=== PATIENT | male | born 1965 | race Caucasian/White ===

== ENCOUNTER → 2019-03-24 | Outpatient (CLI) | payer OTHER ==
--- NOTE | 2019-03-24 08:42 | Diagnostic Imaging Report ---
EXAMINATION: CT of the abdomen and pelvis without contrast. TECHNIQUE: Spiral CT images of the abdomen and pelvis were performed from the lung bases to the lesser trochanters. No intravenous contrast was given per renal stone protocol. Coronal and sagittal reformatted images were obtained. COMPARISON: None. CLINICAL HISTORY:Gross hematuria DISCUSSION: ABSENCE OF INTRAVENOUS CONTRAST DECREASES SENSITIVITY FOR DETECTION OF FOCAL LESIONS AND VASCULAR PATHOLOGY. ABDOMEN/PELVIS: LOWER THORAX: Unremarkable. HEPATOBILIARY:No focal hepatic lesion or intrahepatic biliary ductal dilatation. Gas containing calculus in the dependent gallbladder. No pericholecystic inflammation. SPLEEN: No splenomegaly. PANCREAS: No focal masses or ductal dilatation. ADRENALS: No adrenal nodules. KIDNEYS/URETERS: Exophytic subcentimeter hypoattenuating lesion projecting from the upper pole of the left kidney is too small to further characterize though likely to represent a small cyst. Otherwise no focal renal lesions. No hydronephrosis. No renal, ureteral, or bladder calculi. PELVIC ORGANS/BLADDER: The urinary bladder is unremarkable. Coarse prostatic calcifications. Pelvic phleboliths. PERITONEUM/RETROPERITONEUM: No free air or fluid. LYMPH NODES: No pelvic sidewall, retroperitoneal, or mesenteric lymphadenopathy. VESSELS: Limited evaluation without intravenous contrast. Mild atherosclerotic calcification of the aortoiliac system without aneurysmal dilatation. GI TRACT: The large bowel shows no evidence of distention or wall thickening. Gas and fecal material is noted throughout. The appendix has been removed with metallic clips along the cecum. No small bowel dilatation to suggest obstruction. BONES AND SOFT TISSUES: No osseous destructive lesion. Bone islands in the femoral heads. Small fat-containing umbilical hernia. Otherwise no focal soft tissue abnormalities. IMPRESSION: No acute intra-abdominal or pelvic CT abnormalities. No urolithiasis or other finding to explain the reported history of hematuria. Cholelithiasis. Atherosclerotic vascular disease. Signed by: Dr. Db Godfrey M.D. on 03/24/2019 8:38 AM
== END ==
LOC: CT 07:41
PROVIDERS: ATTEND Family Medicine
DX: R31.0 Gross hematuria (principal)
CPT/HCPCS: 74176